=== PATIENT | female | born 1990 | race Asian ===

== ENCOUNTER 2021-01-12 05:59 | Emergency (ER) | payer OTHER ==
[~2021-01-12] VITALS: Ht 162.6 cm; Wt 95.5 kg
[2021-01-12 09:55] VITALS: BP 113/63
== END 2021-01-12 09:58 | disposition home or self-care (01) ==
LOC: EMS 06:00
DX: I10 Essential (primary) hypertension (principal); F17.210 Nicotine dependence, cigarettes, uncomplicated
CPT/HCPCS: 93005; 99283